=== PATIENT | female | born 2000 | race African-American/Black ===

== ENCOUNTER 2019-03-30 12:35 | Emergency (ER) | payer MEDICAID | END 2019-03-30 13:24 | disposition home or self-care (01) | LOC: NAV ERS 12:35 | DX: O9A.212 Injury, poisoning and certain other consequences of external causes complicating pregnancy, second trimester (principal); S60.461A Insect bite (nonvenomous) of left index finger, initial encounter; W57.XXXA Bitten or stung by nonvenomous insect and other nonvenomous arthropods, initial encounter; Z3A.17 17 weeks gestation of pregnancy | CPT/HCPCS: 99282 ==

== ENCOUNTER 2023-04-26 13:39 | Emergency (ER) | payer SELFPAY ==
[2023-04-26 14:11] LABS: Bilirubin Negative (Negative); Blood, Urine Trace (Negative); Clarity Slightly Cloudy (Clear); Glucose, Urine (Dipstick) Negative (Negative); Ketone, Urine Negative (Negative); Leukocyte Moderate (Negative); Nitrite Negative (Negative); Protein, Urine (Dipstick) > or equal to 300 mg/dL (Neg-Trace); Urobilinogen 0.2 mg/dL (Less than 2)
[2023-04-26 14:18] LABS: Bacteria/HPF 3+ HPF (None Seen); CAUTI Indications for Culture Pelvic or flank pain; RBC/HPF 0-3 HPF (0-3); WBC/HPF 21-50 HPF (0-3)
[2023-04-26 14:19] LABS: Urine Culture Reflex Yes Yes
[2023-04-26] MEDS ORDERED: Cipro 250 MG TAB ONE (14:38)
[2023-04-26] MEDS ORDERED: Indomethacin 25 mg Capsule ONE (14:38)
== END 2023-04-26 14:47 | disposition home or self-care (01) ==
LOC: NAV ERS 13:39
DX: M25.471 Effusion, right ankle (principal); N39.0 Urinary tract infection, site not specified; N18.9 Chronic kidney disease, unspecified
CPT/HCPCS: 81001; 87086

== ENCOUNTER 2023-05-28 16:27 | Emergency (ER) | payer SELFPAY ==
[2023-05-28] MEDS ORDERED: Ketorolac Tromethamine 60 MG/2 ML VIAL ONE (17:34)
== END 2023-05-28 17:53 | disposition home or self-care (01) ==
LOC: NAV ERS 16:27
DX: S29.011A Strain of muscle and tendon of front wall of thorax, initial encounter (principal); W19.XXXA Unspecified fall, initial encounter
CPT/HCPCS: 96372; J1885

== ENCOUNTER 2024-10-24 21:34 | Emergency (ER) | payer OTHER, SELFPAY ==
[2024-10-24] MEDS ORDERED: Ketorolac Tromethamine 30 MG (1 mL) VIAL ONE (22:21)
== END 2024-10-24 22:52 | disposition home or self-care (01) ==
LOC: NAV ERS 21:34
DX: M72.2 Plantar fascial fibromatosis (principal)
CPT/HCPCS: 96372; 99283; J1885

== ENCOUNTER 2025-06-05 18:33 | Emergency (ER) | payer OTHER | END 2025-06-05 19:35 | disposition home or self-care (01) | LOC: NAV ERS 18:33 | DX: S93.504A Unspecified sprain of right lesser toe(s), initial encounter (principal); X58.XXXA Exposure to other specified factors, initial encounter | CPT/HCPCS: 99283 ==